=== PATIENT | male | born 1955 | race Caucasian/White ===

== ENCOUNTER → 2019-04-24 | Day surgery (SDC) | payer MEDICAID ==
[2019-04-20 14:43] LABS: BASOPHILS % (AUTO) 0.8 % (0-1); EOSINOPHILS # (AUTO) 0.5 X10'3 (0-0.9); EOSINOPHILS % (AUTO) 8.4 % (0-6); LYMPHOCYTES # (AUTO) 1.1 X10'3 (1.1-4.8); LYMPHOCYTES % (AUTO) 19.1 % (21-51); MEAN CORPUSCULAR HEMOGLOBIN 29.7 PG (27.0-31.0); MEAN CORPUSCULAR HGB CONC 33.2 g/dL (33.0-36.5); MEAN CORPUSCULAR VOLUME 89.4 FL (78-98); MEAN PLATELET VOLUME 8.2 FL (7.4-10.4); MONOCYTES # (AUTO) 0.5 X10'3 (0-0.9); MONOCYTES % (AUTO) 9.6 % (2-12); NEUTROPHILS # (AUTO) 3.6 X10'3 (1.8-7.7); NEUTROPHILS % (AUTO) 62.1 % (42-75); PRE OP HEMATOCRIT 45.3 % (42.0-52.0); PRE OP PLATELET COUNT 246 X10'3 (140-440); RED BLOOD COUNT 5.07 X10'6 (4.70-6.10); RED CELL DISTRIBUTION WIDTH 13.2 % (11.5-14.5)
[2019-04-20 15:03] LABS: ALBUMIN 3.5 G/DL (3.4-5.0); ALBUMIN/GLOBULIN RATIO 0.9 (1.1-1.5); ALKALINE PHOSPHATASE 85 IU/L (46-116); BLOOD UREA NITROGEN 28 MG/DL (7-18); BUN/CREATININE RATIO 30.4 (5.4-32.0); CALCIUM 8.7 MG/DL (8.5-10.1); CHLORIDE 110 MMOL/L (99-107); CREATININE 0.92 MG/DL (0.60-1.10); PRE OP ALT 27 U/L (30-65); PRE OP ANION GAP 8 (8-16); PRE OP AST 18 U/L (10-37); PRE OP BILIRUB, TOTAL 0.3 MG/DL (0.0-1.0); PRE OP GLUCOSE 116 MG/DL (70-104); PRE OP POTASSIUM 4.4 MMOL/L (3.4-5.1); PRE OP SODIUM 144 MMOL/L (135-145); TOTAL CARBON DIOXIDE 26.3 MMOL/L (24-32); TOTAL PROTEIN 7.2 G/DL (6.4-8.2); eGFR 83 ML/MIN
[2019-04-24] VITALS (13 sets, daily range): BP systolic 140–173; BP diastolic 75–90
[~2019-04-24] VITALS: Ht 175.3 cm; Wt 90.7 kg
[~2019-04-24] MED LIST: BUPIVAcaine/PF 2.5 mg/ml (0.25%) 30ml vial ONE; HYDROcodone/acetaminophen 5mg/325mg tablet PO PRN; LIDOcaine 1% 30ml preserv. free vial ONE; LIDOcaine 2% (20mg/ml) 5ml vial ONE; NO HOME MEDS; albuterol 2.5 MG/3 ML nebule NEB ONE; cefazolin/dext.iso 2gm/100ml 100 ML IV ONE; dexamethasone sod phosphate 4mg/ml inj. ONE; famotidine 10mg tablet PO ONE; fentaNYL/PF 50MCG/1 ML 2ML syringe ONE; glycopyrrolate 0.2mg/ml inj ONE; meperidine/PF 25mg/ml syringe IV PRN; midazolam 2 mg/2 ml injection ONE; morphine 4 MG/ML inj SYRINge IV PRN; neostigmine methylsulfate 1 MG/ML 10ml vial ONE; ondansetron/PF 4mg/2ml inj IV PRN; ondansetron/PF 4mg/2ml inj ONE; proCHLORperazine 10 MG/2 ml inj IV PRN; propofol inj 20 ML IV ONE; ringers solution, lacted 1,000 ML IV SCH; rocuronium 10mg/ml inj IV ONE; sevoflurane 250ml liquid IH ONE
--- NOTE | 2019-04-24 10:38 | NUR ---
Received from OR via , accompanied by Anesthesiologist CAROLINA and report given by Anesthesiolgist. AWAKENS TO VERBAL STIMULI, ETT REMOVED BY DR FIGUEROA, LUNGS SLIGHT WHEEZING RESP RX ORDERED. NO CO PAIN ABD SOFT DSG DI, HOB ELEVATED.
[2019-04-24] MEDS: HYDROcodone/acetaminophen 10/325mg tab PO PRN ×2 (11:23→16:26)
--- NOTE | 2019-04-24 16:27 | NUR ---
AWAKE VS WNL, PAIN DECREASED AFTER PAIN MEDS. ABD SOFT DSG DI, BLADDER SCANNED AT 1550 FOR 350 ML. VOIDED NOW WITH RESIDUAL OF 200ML. DR NETTLES AWARE. PT REFUSES CATH/LEG BAG, DR NETTLES AWARE TOLD PT THAT IF HE CANNOT VOID LATER AT HOME HE WILL NEED TO COME TO THE ER TO BE CATHD. PT CHOSE THAT OPTION. DISCH INSTR GIVEN TO PT AND UNDERSTOOD. DSG DI, HOME WITH SO. NO NAUSEA TOLERATES FOOD.
== END | disposition home or self-care (01) ==
LOC: PAS 07:09
PROVIDERS: ATTEND Surgery
DX: K40.90 Unilateral inguinal hernia, without obstruction or gangrene, not specified as recurrent (principal); F12.90 Cannabis use, unspecified, uncomplicated; Z72.89 Other problems related to lifestyle; Z98.890 Other specified postprocedural states; Z87.891 Personal history of nicotine dependence; Z79.899 Other long term (current) drug therapy
CPT/HCPCS: 36415; 49650; 80053; 82948; 85025; 93005; 94640; 94760; C1781; J1100; J2001; J2250; J2405; J2704; J2710; J3010; J3490; J7120; S2900; A4215; A4618

== ENCOUNTER 2022-01-17 10:22 | Emergency (ER) | payer BC, MEDICAID ==
[~2022-01-17] VITALS: Ht 175.3 cm; Wt 100.0 kg
[~2022-01-17 10:22] MED LIST changes: -BUPIVAcaine/PF 2.5 mg/ml (0.25%) 30ml vial ONE; -HYDROcodone/acetaminophen 5mg/325mg tablet PO PRN; -LIDOcaine 1% 30ml preserv. free vial ONE; -LIDOcaine 2% (20mg/ml) 5ml vial ONE; -albuterol 2.5 MG/3 ML nebule NEB ONE; -cefazolin/dext.iso 2gm/100ml 100 ML IV ONE; -dexamethasone sod phosphate 4mg/ml inj. ONE; -famotidine 10mg tablet PO ONE; -fentaNYL/PF 50MCG/1 ML 2ML syringe ONE; -glycopyrrolate 0.2mg/ml inj ONE; -meperidine/PF 25mg/ml syringe IV PRN; -midazolam 2 mg/2 ml injection ONE; -morphine 4 MG/ML inj SYRINge IV PRN; -neostigmine methylsulfate 1 MG/ML 10ml vial ONE; -ondansetron/PF 4mg/2ml inj IV PRN; -ondansetron/PF 4mg/2ml inj ONE; -proCHLORperazine 10 MG/2 ml inj IV PRN; -propofol inj 20 ML IV ONE; -ringers solution, lacted 1,000 ML IV SCH; -rocuronium 10mg/ml inj IV ONE; -sevoflurane 250ml liquid IH ONE
[2022-01-17 10:48] VITALS: BP 161/96
[2022-01-17] MEDS ORDERED: HYDROcodone/acetaminophen 5mg/325mg tablet PO ONE (12:10)
[2022-01-17] MEDS ORDERED: amox tr/potassium clavulanate 875/125mg TAB PO ONE (12:10)
[2022-01-17] MEDS ORDERED: HYDR-3965 PO (12:12)
[2022-01-17] MEDS ORDERED: AMOX-117 PO (12:12)
[2022-01-17] MEDS ORDERED: HYDR-3964 PO (12:12)
[2022-01-17] MEDS ORDERED: BACI3.5O2 OP (12:13)
== END 2022-01-17 12:57 | disposition home or self-care (01) ==
LOC: ER 10:24
DX: S81.852A Open bite, left lower leg, initial encounter (principal); G89.29 Other chronic pain; F15.20 Other stimulant dependence, uncomplicated; Z56.0 Unemployment, unspecified; W54.0XXA Bitten by dog, initial encounter; Y93.89 Activity, other specified; Y92.89 Other specified places as the place of occurrence of the external cause; Y99.8 Other external cause status
CPT/HCPCS: 99283; A6223; J7030; A6446; A6449

== ENCOUNTER 2022-03-03 14:12 | Emergency (ER) | payer BC, MEDICAID ==
[~2022-03-03] VITALS: Ht 175.3 cm; Wt 103.0 kg
[~2022-03-03 14:12] MED LIST changes: +BACI3.5O2 OP
[2022-03-03 14:25] VITALS: BP 152/88
== END 2022-03-03 18:11 | disposition home or self-care (01) ==
LOC: ER 14:15
DX: R05.9 Cough, unspecified (principal); Z20.822 Contact with and (suspected) exposure to COVID-19; R06.2 Wheezing; G89.29 Other chronic pain; F17.200 Nicotine dependence, unspecified, uncomplicated; F15.90 Other stimulant use, unspecified, uncomplicated; Z86.14 Personal history of Methicillin resistant Staphylococcus aureus infection; Z56.0 Unemployment, unspecified; Z79.899 Other long term (current) drug therapy
CPT/HCPCS: 71046; 87502; 87503; 87635; 99284; C9803